=== PATIENT | male | born 1970 | race Caucasian/White ===

== ENCOUNTER 2019-06-12 23:54 | Observation (INO) ==
[2019-06-13] MEDS ORDERED: MORPHINE 4 MG/1 ML VIAL IV PRN (01:45)
[2019-06-13] MEDS ORDERED: ONDANSETRON 4 MG/2 ML VIAL IV PRN (01:45)
[2019-06-13] MEDS ORDERED: DEXTROSE 5% NACL 0.45% 1,000 ML IV SCH (02:00)
[2019-06-13] MEDS ORDERED: PIPERACILLIN/TAZOBACTAM 3,375 MG in SODIUM CHLORIDE 0.9% 100 ML IV SCH (02:00)
[2019-06-13 05:21] LABS: Basophils % 0.1 % (0.0-0.8); Hematocrit 51.1 VOL% (42.0-52.0); Hemoglobin 17.3 GM/DL (14.0-18.0); Immature Granulocytes % 0.3 %; Immature Granulocytes Absolute 0.04 #; Lymphocytes # 0.5 10*3/uL (1.4-4.0); Lymphocytes % 4.7 % (21.2-54.2); Mean Corpuscular HGB Conc 33.9 GM/DL (32-36); Mean Corpuscular Volume 89.8 FL (87-102); Mean Platelet Volume 12.5 FL (9.6-12.0); Monocytes % 0.3 % (1.7-12.7); Neutrophils % 94.6 % (38.7-73.9); Platelet Count 204 T/CUMM (130-400); Red Blood Count 5.69 MC/CUMM (3.8-5.5); Red Cell Distribution Width 12.7 % (9.3-17.3); White Blood Count 11.6 T/CUMM (4-12)
[2019-06-13 05:51] LABS: Albumin 3.7 G/DL (3.4-5.0); Bilirubin,Total 0.8 MG/DL (0.2-1.0); Calcium 9.2 MG/DL (8.5-10.1); Osmolality,Calculated 282.4 MOS/KG (273-304); Total Protein 7.1 G/DL (6.4-8.3)
[2019-06-13 05:52] LABS: Band Neutrophils 2 % (0-10); Lymphocytes 2 % (20-55); Platelet Estimate Normal; Segmented Neutrophils 96 % (50-85)
[2019-06-13 05:53] LABS: Total Cells Counted 100
[2019-06-13] MEDS ORDERED: METOPROLOL TARTRATE 5 MG/5 ML VIAL IV PRN (08:42)
[2019-06-13] MEDS ORDERED: METOPROLOL SUCCINATE XL 50 MG TABLET PO SCH (09:00)
[2019-06-13 12:25] VITALS: BP 141/91
== END 2019-06-13 14:38 | disposition home or self-care (01) ==
LOC: EDBD → N.EDINP 23:54 → N.ED 23:54 → N.3E 06-13 02:27
PROVIDERS: ADMIT Surgery; ATTEND Surgery